=== PATIENT | female | born 1985 | race African-American/Black ===

== ENCOUNTER 2017-04-23 23:01 | Emergency (ER) | payer BC ==
[~2017-04-23] VITALS: Ht 157.5 cm; Wt 95.7 kg
[2017-04-23 23:38] VITALS: BP 141/84
[2017-04-24] MEDS ORDERED: SUMA25TA3 PO (00:12)
[2017-04-24] MEDS ORDERED: TOPI100T24 PO (00:12)
[2017-04-24] MEDS ORDERED: DEXA0.5T PO (00:12)
[2017-04-24 00:24] LABS: ASPARTATE AMINO TRANSFERASE 15 U/L (15-37); BLOOD UREA NITROGEN 7 mg/dL (7-18)
== END 2017-04-24 01:03 ==
LOC: ED 04-24 00:24
DX: R60.0 Localized edema (principal)
CPT/HCPCS: 36415; 80053; 85025; 99284